=== PATIENT | female | born 1950 | race Caucasian/White ===

== ENCOUNTER 2019-11-26 17:50 | Emergency (ER) | payer MEDICARE, OTHER ==
--- NOTE | 2019-11-26 18:43 | RADIOLOGY REPORT (SQ) ---
EXAM DESCRIPTION: CT HEAD WITHOUT COMPLETED DATE/TIME: 11/26/2019 6:19 pm REASON FOR STUDY: head trauma COMPARISON: 08/21/2010 TECHNIQUE: Axial images acquired through the brain without intravenous contrast. Images reviewed wi th bone, brain and subdural windows. Additional sagittal and coronal reconstructions were generated. Images stored on PACS. All CT scanners at this facility use dose modulation, iterative reconstruction, and/or weight based d osing when appropriate to reduce radiation dose to as low as reasonably achievable (ALARA). [facility]: Dose Right [facility]: CareDose [facility]: Dose Right [facility]: Teradose 4D [facility]: [employer] RADIATION DOSE: CT Rad equipment meets quality standard of care and radiation dose reduction techniq ues were employed. CTDIvol: 53.2 mGy. DLP: 964 mGy-cm. mGy. LIMITATIONS: None. FINDINGS: VENTRICLES: Normal size and contour. CEREBRUM: No masses. No hemorrhage. No midline shift. No evidence for acute infarction. Normal gra y/white matter differentiation. No areas of low density in the white matter. CEREBELLUM: No masses. No hemorrhage. No alteration of density. No evidence for acute infarction. EXTRAAXIAL SPACES: No fluid collections. No masses. ORBITS AND GLOBE: No intra- or extraconal masses. Normal contour of globe without masses. CALVARIUM: No fracture. PARANASAL SINUSES: No fluid or mucosal thickening. SOFT TISSUES: There is a small scalp hematoma in the posterior left scalp. OTHER: No other significant finding. IMPRESSION: Small scalp hematoma without evidence of an acute intracranial process. EVIDENCE OF ACUTE STROKE: NO. COMMENT: Quality ID # [id number]: Final reports with documentation of one or more dose reduction techniques (e.g., Automated exposure control, adjustment of the mA and/or kV according to patient size, use of iterative reconstruction technique) TECHNICAL DOCUMENTATION: JOB ID: [id number] 2010 [employer]- All Rights Reserved Reading location - IP/workstation name: [email or web address]
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
[2019-11-26 19:02] VITALS: BP 119/74
== END 2019-11-26 19:15 | disposition home or self-care (01) ==
LOC: ER 17:50
DX: S09.90XA Unspecified injury of head, initial encounter (principal); V18.9XXA Unspecified pedal cyclist injured in noncollision transport accident in traffic accident, initial encounter; Z87.891 Personal history of nicotine dependence
CPT/HCPCS: 70450; 99283